=== PATIENT | female | born 1995 | race Caucasian/White ===

== ENCOUNTER 2021-06-15 13:23 | Inpatient (IN) | payer BC, OTHER ==
[~2021-06-15] VITALS: Ht 160 cm; Wt 64.5 kg
--- NOTE | 2021-06-15 13:30 | NUR ---
POISON CONTROL CALLED FOR PT INTETIONAL OD ON TYLENOL. PT STATES THAT SHE TOOK 10,000 MG OF TYLENOL AT APPROX 1130 THIS AM. RECOMMENDATIONS FOLLOWS: CBC, CMP, ASA/TYLENOL LEVELS WITH A 4 HR TYLENOL LEVEL REPEAT, TOX SCREEN, LIVER FUNCTION (AST/ALT) SHOULD TYLENOL LEVER BE>150 OR LIVER FUNCTION ELEVATED, ADMINISTER ACETILCYSTINE. PT'S RN AND PROVIDER NOTIFIED
[2021-06-15] MEDS ORDERED: WATER IV ONE ×6 (14:45→21:00)
[2021-06-15] MEDS ORDERED: DEXTROSE 5% IV ONE ×6 (14:45→21:00)
[2021-06-15] MEDS ORDERED: ACETYLCYSTEINE IV ONE ×6 (14:45→21:00)
[2021-06-15] MEDS ORDERED: normal saline 1000ML IV soln IVB ONE (14:45)
[2021-06-15] MEDS ORDERED: ondansetron/PF 4mg/2ml inj IV ONE (14:45)
[2021-06-15 14:52] LABS: CLARITY,URINE CLOUDY (Clear); COLOR,URINE YELLOW (Yellow); GLUCOSE, URINE NEGATIVE (Neg); KETONES,URINE 40 mg/dl (Neg); LEUKOCYTE ESTERASE ,URINE SMALL (Neg); NITRITES, URINE NEGATIVE (Neg); OCCULT BLOOD,URINE NEGATIVE (Neg); PROTEIN,URINE NEGATIVE (Neg); UROBILINOGEN,URINE 0.2 E.U/dL (0.2-1.0)
[2021-06-15 14:54] LABS: BASOPHILS % (AUTO) 0.3 % (0-1); EOSINOPHILS % (AUTO) 0.2 % (0-6); HEMATOCRIT 43.1 % (35.0-45.0); HEMOGLOBIN 14.8 g/dl (12.0-16.0); LYMPHOCYTES # (AUTO) 1.3 X10'3 (1.1-4.8); LYMPHOCYTES % (AUTO) 12.1 % (21-51); MEAN CORPUSCULAR HEMOGLOBIN 29.4 PG (27.0-31.0); MEAN CORPUSCULAR HGB CONC 34.4 g/dL (33.0-36.5); MEAN CORPUSCULAR VOLUME 85.5 FL (78-98); MEAN PLATELET VOLUME 8.2 FL (7.4-10.4); MONOCYTES # (AUTO) 0.9 X10'3 (0-0.9); MONOCYTES % (AUTO) 8.2 % (2-12); NEUTROPHILS # (AUTO) 8.5 X10'3 (1.8-7.7); NEUTROPHILS % (AUTO) 79.2 % (42-75); PLATELET COUNT 252 X10'3 (140-440); RED BLOOD COUNT 5.04 X10'6 (4.20-5.60); RED CELL DISTRIBUTION WIDTH 12.3 % (11.5-14.5); WHITE BLOOD COUNT 10.7 X10'3 (4.5-11.0)
[2021-06-15 14:58] LABS: URINE BARBITUATE SCREEN NEGATIVE (Neg); URINE BENZODIAZEPINES SCREEN NEGATIVE (Neg); URINE COCAINE SCREEN NEGATIVE (Neg); URINE METHADONE SCREEN NEGATIVE (Neg); URINE OPIATE SCREEN NEGATIVE (Neg); URINE PHENCYCLIDINE SCREEN NEGATIVE (Neg)
[2021-06-15 15:02] LABS: ALANINE AMINOTRANSFERASE 14 U/L (12-78); ALBUMIN 4.8 G/DL (3.4-5.0); ALBUMIN/GLOBULIN RATIO 1.3 (1.1-1.5); ALKALINE PHOSPHATASE 103 IU/L (46-116); ANION GAP 11 (8-16); ASPARTATE AMINO TRANSFERASE 19 U/L (10-37); BILIRUBIN,TOTAL 0.9 MG/DL (0.1-1.0); BLOOD UREA NITROGEN 14 MG/DL (7-18); BUN/CREATININE RATIO 22.2 (6.6-38.0); CALCIUM 8.8 MG/DL (8.5-10.1); CHLORIDE 104 MMOL/L (99-107); CREATININE 0.63 MG/DL (0.40-0.90); GLUCOSE 109 MG/DL (70-104); POTASSIUM 3.8 MMOL/L (3.5-5.1); SODIUM 139 MMOL/L (135-145); TOTAL CARBON DIOXIDE 23.8 MMOL/L (24-32); TOTAL PROTEIN 8.6 G/DL (6.4-8.2); eGFR > 90 ML/MIN
[2021-06-15 15:07] LABS: URINE AMPHETAMINE SCREEN NEGATIVE (Neg); URINE CANNABINOID SCREEN NEGATIVE (Neg)
--- NOTE | 2021-06-15 15:10 | NUR ---
per poison control, draw labs now and 4 hrs. if Tylenol level >150 or liver fuction is elevated, start acetylcysteine
[2021-06-15 15:11] LABS: ETHANOL < 0.010 GM/DL (0.0-0.010)
[2021-06-15 15:12] LABS: UA COLLECTION TYPE VOIDED
[2021-06-15 15:13] LABS: BACTERIA,URINE 1+ /HPF (Neg); MUCUS STRANDS MODERATE /LPF (Neg); RBC,URINE 0-2 /HPF (0-2); SQUAMOUS EPITHELIAL CELL,UR MANY /LPF (FEW); WBC,URINE 0-4 /HPF (0-4)
[2021-06-15 15:14] LABS: URINE HCG NEGATIVE (NEG)
--- NOTE | 2021-06-15 15:15 | NUR ---
U/A REJECTED FOR CULTURE PER LAB. PRIMARY RN MADE AWARE.
[2021-06-15 15:21] LABS: ACETAMINOPHEN 177.7 UG/ML (10-30)
[2021-06-15] MEDS ORDERED: NO HOME MEDS (15:48)
--- NOTE | 2021-06-15 17:30 | NUR ---
poison conrol called asking to has tylenol and ast/alt be repeated at 1730.
[2021-06-15] MEDS ORDERED: magnesium Cl slow-release 64mg tablet PO PRN (18:05)
[2021-06-15] MEDS: normal saline 1000ml 1,000 ML IV SCH (18:05)
[2021-06-15] MEDS ORDERED: magnesium 4gm in 100ml NS 100 ML IV PRN (18:05)
[2021-06-15] MEDS ORDERED: potassium CL 10mEq/100ml bag 100 ML IV PRN (18:05)
[2021-06-15] MEDS ORDERED: mag hydrox/Alum hydrox/simeth 30ml oral suspension PO PRN (18:05)
[2021-06-15] MEDS ORDERED: magnesium 2GM in 50ml NS 50 ML IV PRN (18:05)
[2021-06-15] MEDS ORDERED: potassium Cl 20 mEq SR tablet PO PRN (18:05)
[2021-06-15] MEDS ORDERED: ondansetron/PF 4mg/2ml inj IV PRN (18:05)
[2021-06-15] MEDS ORDERED: magnesium hydroxide 30ml (MOM) UD suspension PO PRN (18:05)
[2021-06-15 18:54] LABS: ACETAMINOPHEN 85.7 UG/ML (10-30)
[2021-06-15] MEDS: docusate sod 100mg capsule PO SCH (20:00)
[2021-06-15] MEDS: K and/or MAG REPLACEMENT MC SCH (20:00)
[2021-06-15 20:46] LABS: CLARITY,URINE SLIGHTLY CLOUDY (Clear); COLOR,URINE YELLOW (Yellow); GLUCOSE, URINE NEGATIVE (Neg); KETONES,URINE >=80 mg/dl (Neg); LEUKOCYTE ESTERASE ,URINE TRACE (Neg); NITRITES, URINE NEGATIVE (Neg); OCCULT BLOOD,URINE NEGATIVE (Neg); PH,URINE 5.5 (4.8-8.0); PROTEIN,URINE NEGATIVE (Neg); UROBILINOGEN,URINE 0.2 E.U/dL (0.2-1.0)
[2021-06-15 20:50] LABS: UA COLLECTION TYPE CLN CATCH MIDSTREAM
[2021-06-15 20:57] LABS: BACTERIA,URINE 1+ /HPF (Neg); MUCUS STRANDS FEW /LPF (Neg); RBC,URINE 0-2 /HPF (0-2); SQUAMOUS EPITHELIAL CELL,UR MODERATE /LPF (FEW)
--- NOTE | 2021-06-15 21:08 | NUR ---
Pt pink, alert, no acute/resp distress. PIV site c/d/i s complication or adverse reaction. Visitor at bedside.
--- NOTE | 2021-06-15 22:10 | NUR ---
Pt pink, alert, no acute/resp distress. PIV sites c/d/i s complication or adverse reaction. Bed down, wheels locked, rail 2/2 up and locked. Will continue to monitor for acute changes and needs
[2021-06-15] MEDS: DEXTROSE 5% IV ONE (23:08)
[2021-06-15] MEDS: ACETYLCYSTEINE IV ONE (23:08)
[2021-06-15] MEDS: WATER IV ONE (23:08)
--- NOTE | 2021-06-15 23:19 | NUR ---
Pt pink, alert, no acute/resp distress. PIV sites c/d/i s complication or adverse reaction. Bed down, wheels locked, rail 2/2 up and locked. Will continue to monitor for acute changes and needs Pt ambulatory to bathroom and back, no complications or adverse.
[2021-06-16 01:54] LABS: BASOPHILS # (AUTO) 0.1 X10'3 (0-0.2); BASOPHILS % (AUTO) 0.4 % (0-1); EOSINOPHILS % (AUTO) 0.2 % (0-6); HEMATOCRIT 38.1 % (35.0-45.0); LYMPHOCYTES # (AUTO) 2.5 X10'3 (1.1-4.8); MEAN CORPUSCULAR HEMOGLOBIN 29.4 PG (27.0-31.0); MEAN CORPUSCULAR HGB CONC 34.2 g/dL (33.0-36.5); MONOCYTES # (AUTO) 1.6 X10'3 (0-0.9); MONOCYTES % (AUTO) 11.6 % (2-12); NEUTROPHILS # (AUTO) 9.8 X10'3 (1.8-7.7); NEUTROPHILS % (AUTO) 69.8 % (42-75); PLATELET COUNT 233 X10'3 (140-440); RED BLOOD COUNT 4.43 X10'6 (4.20-5.60); RED CELL DISTRIBUTION WIDTH 12.6 % (11.5-14.5)
[2021-06-16 02:08] LABS: APTT 27 SECONDS (22-32)
[2021-06-16 02:11] LABS: ALANINE AMINOTRANSFERASE 15 U/L (12-78); ALBUMIN 3.8 G/DL (3.4-5.0); ALBUMIN/GLOBULIN RATIO 1.1 (1.1-1.5); ALKALINE PHOSPHATASE 82 IU/L (46-116); ANION GAP 14 (8-16); ASPARTATE AMINO TRANSFERASE 15 U/L (10-37); BILIRUBIN,TOTAL 0.6 MG/DL (0.1-1.0); BLOOD UREA NITROGEN 9 MG/DL (7-18); BUN/CREATININE RATIO 14.5 (6.6-38.0); CALCIUM 8.6 MG/DL (8.5-10.1); CHLORIDE 105 MMOL/L (99-107); CHOL/HDL RATIO 2.1 (0.00-4.99); CHOLESTEROL 123 MG/DL (0-200); CREATININE 0.62 MG/DL (0.40-0.90); GLUCOSE 114 MG/DL (70-104); HDL CHOLESTEROL 58 MG/DL (35-60); LDL CHOLESTEROL 62 MG/DL (50-100); MAGNESIUM 2.1 MG/DL (1.5-2.4); PHOSPHORUS 2.9 MG/DL (2.3-4.5); POTASSIUM 3.1 MMOL/L (3.5-5.1); SODIUM 139 MMOL/L (135-145); TOTAL CARBON DIOXIDE 20.4 MMOL/L (24-32); TOTAL PROTEIN 7.3 G/DL (6.4-8.2); TRIGLYCERIDES 24 MG/DL (20-135); eGFR > 90 ML/MIN
[2021-06-16 02:20] VITALS: BP 112/72
[2021-06-16 06:00] VITALS: BP 101/67
--- NOTE | 2021-06-16 06:33 | NUR ---
Problems reprioritized. Patient report given, questions answered & plan of care reviewed with TALITA PARISI.
[2021-06-16] MEDS: K and/or MAG REPLACEMENT MC SCH ×2 (08:00→20:00)
[2021-06-16] MEDS: normal saline 1000ml 1,000 ML IV SCH ×2 (08:22→20:52)
[2021-06-16] MEDS: docusate sod 100mg capsule PO SCH ×2 (08:50→20:00)
[2021-06-16] MEDS: potassium Cl 20 mEq SR tablet PO PRN ×3 (08:51→20:52)
[2021-06-16] MEDS: cefTRIAXone 1g/NS 100ml IVPB 100 ML IV SCH (10:44)
[2021-06-16 11:00] VITALS: BP 124/81
[2021-06-16 11:22] LABS: ACETAMINOPHEN 3.4 UG/ML (10-30); ALANINE AMINOTRANSFERASE 13 U/L (12-78); ALBUMIN 3.7 G/DL (3.4-5.0); ALBUMIN/GLOBULIN RATIO 1.2 (1.1-1.5); ALKALINE PHOSPHATASE 76 IU/L (46-116); ASPARTATE AMINO TRANSFERASE 11 U/L (10-37); BILIRUBIN,DIRECT 0.1 MG/DL (0-0.3); BILIRUBIN,TOTAL 0.4 MG/DL (0.1-1.0); TOTAL PROTEIN 6.7 G/DL (6.4-8.2)
[2021-06-16] MEDS: WATER IV ONE (12:32)
[2021-06-16] MEDS: ACETYLCYSTEINE IV ONE (12:32)
[2021-06-16] MEDS: DEXTROSE 5% IV ONE (12:32)
[2021-06-16 14:26] LABS: HEMOGLOBIN A1C 4.4 % (4.5-6.2)
[2021-06-16 15:00] VITALS: BP 114/70
[2021-06-16 18:00] VITALS: BP 135/85
[2021-06-16 22:00] VITALS: BP 118/67
[2021-06-17 02:00] VITALS: BP 118/67
[2021-06-17 06:00] VITALS: BP 102/60
[2021-06-17 06:47] LABS: BASOPHILS % (AUTO) 0.8 % (0-1); EOSINOPHILS # (AUTO) 0.2 X10'3 (0-0.9); EOSINOPHILS % (AUTO) 2.5 % (0-6); HEMATOCRIT 36.9 % (35.0-45.0); HEMOGLOBIN 12.5 g/dl (12.0-16.0); LYMPHOCYTES # (AUTO) 2.2 X10'3 (1.1-4.8); LYMPHOCYTES % (AUTO) 35.8 % (21-51); MEAN CORPUSCULAR HEMOGLOBIN 29.3 PG (27.0-31.0); MEAN CORPUSCULAR HGB CONC 33.9 g/dL (33.0-36.5); MEAN CORPUSCULAR VOLUME 86.5 FL (78-98); MEAN PLATELET VOLUME 8.2 FL (7.4-10.4); MONOCYTES # (AUTO) 0.7 X10'3 (0-0.9); MONOCYTES % (AUTO) 12.1 % (2-12); NEUTROPHILS % (AUTO) 48.8 % (42-75); PLATELET COUNT 211 X10'3 (140-440); RED BLOOD COUNT 4.26 X10'6 (4.20-5.60); RED CELL DISTRIBUTION WIDTH 12.6 % (11.5-14.5); WHITE BLOOD COUNT 6.1 X10'3 (4.5-11.0)
[2021-06-17 06:59] LABS: APTT 28 SECONDS (22-32)
[2021-06-17 07:15] LABS: ALANINE AMINOTRANSFERASE 15 U/L (12-78); ALBUMIN 3.4 G/DL (3.4-5.0); ALBUMIN/GLOBULIN RATIO 1.1 (1.1-1.5); ALKALINE PHOSPHATASE 69 IU/L (46-116); ANION GAP 10 (8-16); ASPARTATE AMINO TRANSFERASE 11 U/L (10-37); BILIRUBIN,TOTAL 0.4 MG/DL (0.1-1.0); BLOOD UREA NITROGEN 3 MG/DL (7-18); BUN/CREATININE RATIO 5.1 (6.6-38.0); CALCIUM 8.6 MG/DL (8.5-10.1); CHLORIDE 109 MMOL/L (99-107); CREATININE 0.59 MG/DL (0.40-0.90); GLUCOSE 90 MG/DL (70-104); MAGNESIUM 1.8 MG/DL (1.5-2.4); POTASSIUM 4.1 MMOL/L (3.5-5.1); SODIUM 142 MMOL/L (135-145); TOTAL PROTEIN 6.5 G/DL (6.4-8.2); eGFR > 90 ML/MIN
[2021-06-17] MEDS: K and/or MAG REPLACEMENT MC SCH ×2 (08:00→19:45)
[2021-06-17] MEDS: docusate sod 100mg capsule PO SCH ×2 (08:49→22:24)
[2021-06-17] MEDS: cefTRIAXone 1g/NS 100ml IVPB 100 ML IV SCH (08:49)
--- NOTE | 2021-06-17 09:48 | NUR ---
Malnutrition consult: Pt reports 2-13 lb wt loss with decreased appetite per malnutrition risk screen with RN. No wt hx in EMR though current scaled weight is appropriate and 123% IBW. Pt on a regular diet, initially with average 50% PO intake however up to 100% PO intake at most recent meal. Pt with no documented decrease in muscle strength or edema and per ED report appears well developed well nourished. Pt currently lacks a minimum of two criteria for malnutrition. Will continue to follow. Addendum: 06/17/21 at [address] Amended: Links added.
[2021-06-17 11:00] VITALS: BP 111/77
[2021-06-17] MEDS: normal saline 1000ml 1,000 ML IV SCH ×2 (11:18→23:25)
--- NOTE | 2021-06-17 13:52 | NUR ---
Per orders,DC pt. pt left with transport via wheelchair to [facility]. Paperwork supplied and pt left with all belongings. IV and tele removed.
[2021-06-17 15:00] VITALS: BP 111/66
[2021-06-17 18:00] VITALS: BP 112/67
--- NOTE | 2021-06-17 18:37 | NUR ---
Patient in room PCU 3017. I have received report from Isabel SANON and had the opportunity to ask questions and assume patient care.
[2021-06-17 22:00] VITALS: BP 134/74
[2021-06-18 02:00] VITALS: BP 104/72
[2021-06-18] MEDS: normal saline 1000ml 1,000 ML IV SCH (04:50)
[2021-06-18 06:00] VITALS: BP 104/72
--- NOTE | 2021-06-18 06:18 | NUR ---
Problems reprioritized. Patient report given, questions answered & plan of care reviewed with Isabel RN.
[2021-06-18] MEDS: cefTRIAXone 1g/NS 100ml IVPB 100 ML IV SCH (09:03)
[2021-06-18] MEDS: docusate sod 100mg capsule PO SCH (09:04)
[2021-06-18 09:16] LABS: BASOPHILS % (AUTO) 0.6 % (0-1); EOSINOPHILS # (AUTO) 0.2 X10'3 (0-0.9); EOSINOPHILS % (AUTO) 2.8 % (0-6); HEMATOCRIT 36.2 % (35.0-45.0); HEMOGLOBIN 12.2 g/dl (12.0-16.0); LYMPHOCYTES # (AUTO) 1.7 X10'3 (1.1-4.8); LYMPHOCYTES % (AUTO) 25.2 % (21-51); MEAN CORPUSCULAR HGB CONC 33.7 g/dL (33.0-36.5); MEAN PLATELET VOLUME 8.5 FL (7.4-10.4); MONOCYTES # (AUTO) 0.9 X10'3 (0-0.9); MONOCYTES % (AUTO) 12.8 % (2-12); NEUTROPHILS # (AUTO) 3.9 X10'3 (1.8-7.7); NEUTROPHILS % (AUTO) 58.6 % (42-75); PLATELET COUNT 204 X10'3 (140-440); RED BLOOD COUNT 4.21 X10'6 (4.20-5.60); RED CELL DISTRIBUTION WIDTH 12.6 % (11.5-14.5); WHITE BLOOD COUNT 6.7 X10'3 (4.5-11.0)
[2021-06-18 09:17] LABS: APTT 29 SECONDS (22-32)
[2021-06-18 09:23] LABS: ALANINE AMINOTRANSFERASE 14 U/L (12-78); ALBUMIN 3.6 G/DL (3.4-5.0); ALBUMIN/GLOBULIN RATIO 1.2 (1.1-1.5); ALKALINE PHOSPHATASE 74 IU/L (46-116); ANION GAP 10 (8-16); ASPARTATE AMINO TRANSFERASE 11 U/L (10-37); BILIRUBIN,TOTAL 0.4 MG/DL (0.1-1.0); BLOOD UREA NITROGEN 8 MG/DL (7-18); CALCIUM 8.4 MG/DL (8.5-10.1); CHLORIDE 108 MMOL/L (99-107); GLUCOSE 85 MG/DL (70-104); MAGNESIUM 1.9 MG/DL (1.5-2.4); PHOSPHORUS 3.3 MG/DL (2.3-4.5); POTASSIUM 3.7 MMOL/L (3.5-5.1); SODIUM 141 MMOL/L (135-145); TOTAL CARBON DIOXIDE 22.9 MMOL/L (24-32); TOTAL PROTEIN 6.5 G/DL (6.4-8.2); eGFR > 90 ML/MIN
[2021-06-18] MEDS: K and/or MAG REPLACEMENT MC SCH (09:54)
--- NOTE | 2021-06-18 10:46 | NUR ---
Page Sent PAGER ID: [phone] MESSAGE: Jose Hays in Rm [id number], Just spoke to Majo at [facility], she just gave me a copy of the note that was suppose to be put in her chart last night. [facility] [id number]
[2021-06-18 11:00] VITALS: BP 114/74
--- NOTE | 2021-06-18 13:33 | NUR ---
per orders discharged pt. Education on suicide and mental health provided and all questions answered. Removed IV and tele. Pt left via wheelchair to front door where pts mom picked her up.
== END 2021-06-18 13:25 | disposition home or self-care (01) | DRG 918 ==
LOC: ER 13:24 → ED HOLD 18:46 → PCU 3S 06-16 02:00
PROVIDERS: ADMIT Family Medicine; ATTEND Family Medicine
DX: T39.1X2A Poisoning by 4-Aminophenol derivatives, intentional self-harm, initial encounter (principal); F32.A Depression, unspecified; Z20.822 Contact with and (suspected) exposure to COVID-19; E87.6 Hypokalemia; Z60.2 Problems related to living alone; Y92.89 Other specified places as the place of occurrence of the external cause; Z59.9 Problem related to housing and economic circumstances, unspecified
CPT/HCPCS: 36415; 71045; 80053; 80061; 80076; 80305; 80320; 80329; 81001; 81025; 82140; 83036; 83735; 84100; 84443; 84450; 84460; 85025; 85610; 85730; 86885; 86900; 86901; 87081; 87088; 87635; 93005; 99291; C9803; G0378; J0132; J0696; J2405; J7030; J7060; J7070